=== PATIENT | female | born 1995 | race Caucasian/White ===

== ENCOUNTER 2020-11-18 13:55 | Emergency (ER) | payer OTHER, MEDICAID ==
[~2020-11-18] VITALS: Ht 157.5 cm; Wt 49.9 kg
[~2020-11-18 13:55] MED LIST: CIPROFLOXACIN500 M1 PO; DELTASONE20 MG PO; FLAGYL500 MG PO; IBUPROFEN 200200 M1 PO; IBUPROFEN 800800 M1 PO; IBUPROFEN 800800 MG PO; IRON325 PO; MACROBID 100 M100 M1 PO; NOHOMEMEDICATIONS; PRENA1 CHEW TABL1 MG; PRENATAL VITAM1 EAC5 PO; SEROQUEL 25 MG25 M1 PO; SERTRALINE HCL50 MG PO; TRAMADOL 50 MG50 MG PO; VISTARIL 25 MG25 M1 PO; ZOFRAN4 MG PO
[2020-11-18] MEDS ORDERED: METFORMIN HCL500 M3 PO (14:10)
[2020-11-18 14:56] LABS: ABSOLUTE EOSINOPHILS 0.1 thou/uL (0.0-0.7); ABSOLUTE LYMPHOCYTES 1.9 thou/uL (0.8-5.3); ABSOLUTE MONOCYTES 0.3 thou/uL (0.0-1.2); ABSOLUTE NEUTROPHILS 3.4 thou/uL (1.6-8.1); BASOPHILS 0.5 %; EOSINOPHILS 1.2 %; HEMOGLOBIN 13.8 gm/dL (12.0-15.0); LYMPHOCYTES 34.2 %; MCH 29.1 pg (26.0-34.0); MCHC 33.8 g/dL (28.0-37.0); MCV 86.2 fL (80.0-100.0); MONOCYTES 4.8 %; MPV 8.3 fl. (7.2-11.1); NUCLEATED RBCS 0 /100WBC; PLATELET COUNT* 180 thou/uL (150-400); POLYS 59.3 %; RBC 4.76 mil/uL (4.20-5.00); WBC 5.7 thou/uL (4.0-11.0)
[2020-11-18 15:08] LABS: URINE BILIRUBIN NEGATIVE (Negative); URINE BLOOD NEGATIVE (Negative); URINE CLARITY CLEAR; URINE COLOR YELLOW; URINE GLUCOSE-RANDOM NEGATIVE (Negative); URINE KETONES NEGATIVE (Negative); URINE LEUKOCYTES-REFLEX NEGATIVE (Negative); URINE NITRITE-REFLEX NEGATIVE (Negative); URINE PROTEIN NEGATIVE (Negative); URINE UROBILINOGEN 0.2 E.U./dl (0.2-1.0)
[2020-11-18 15:11] LABS: CALCIUM 8.5 mg/dL (8.5-10.1); CREATININE 0.6 mg/dL (0.6-1.3); POTASSIUM 3.6 mmol/L (3.5-5.1)
[2020-11-18 15:15] LABS: ALBUMIN 3.7 g/dL (3.4-5.0); TOTAL BILIRUBIN 0.4 mg/dL (<0.1-1.0); TOTAL PROTEIN 6.7 g/dL (6.4-8.2)
--- NOTE | 2020-11-18 15:47 | EKG ---
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
[2020-11-18] MEDS ORDERED: FLEXERIL PO (16:14)
[2020-11-18] MEDS ORDERED: IBUPROFEN 800800 M1 PO (16:14)
[2020-11-18] MEDS ORDERED: BUTALB-APAP-CA1 EACH PO (16:14)
[2020-11-18 16:31] VITALS: BP 90/50
== END 2020-11-18 16:32 | disposition home or self-care (01) ==
LOC: M.ERS 13:55
PROVIDERS: Nurse Practitioner Family
DX: S06.0X0A Concussion without loss of consciousness, initial encounter (principal); G43.909 Migraine, unspecified, not intractable, without status migrainosus; R55 Syncope and collapse; F17.210 Nicotine dependence, cigarettes, uncomplicated; Z91.010 Allergy to peanuts; Z90.710 Acquired absence of both cervix and uterus; W22.03XA Walked into furniture, initial encounter; Y93.89 Activity, other specified; Y92.59 Other trade areas as the place of occurrence of the external cause; Y99.9 Unspecified external cause status

== ENCOUNTER 2021-01-16 12:04 | Emergency (ER) | payer OTHER, MEDICAID ==
[~2021-01-16] VITALS: Ht 157.5 cm; Wt 36.3 kg
[~2021-01-16 12:04] MED LIST changes: +BUTALB-APAP-CA1 EACH PO; +FLEXERIL PO; +METFORMIN HCL500 M3 PO
[2021-01-16] MEDS ORDERED: FLEXERIL PO (12:22)
[2021-01-16] MEDS ORDERED: PEPCID40 MG PO (12:22)
[2021-01-16 12:52] LABS: ABSOLUTE EOSINOPHILS 0.1 thou/uL (0.0-0.7); ABSOLUTE LYMPHOCYTES 1.5 thou/uL (0.8-5.3); ABSOLUTE MONOCYTES 0.3 thou/uL (0.0-1.2); ABSOLUTE NEUTROPHILS 5.6 thou/uL (1.6-8.1); BASOPHILS 0.4 %; EOSINOPHILS 1.1 %; HEMATOCRIT 43.4 % (37.0-47.0); HEMOGLOBIN 15.2 gm/dL (12.0-15.0); LYMPHOCYTES 19.8 %; MCH 30.1 pg (26.0-34.0); MCHC 35.1 g/dL (28.0-37.0); MCV 85.6 fL (80.0-100.0); MONOCYTES 4.5 %; MPV 8.3 fl. (7.2-11.1); NUCLEATED RBCS 0 /100WBC; PLATELET COUNT* 188 thou/uL (150-400); POLYS 74.2 %; RBC 5.07 mil/uL (4.20-5.00); RDW-CV 14.8 % (10.5-14.5); WBC 7.5 thou/uL (4.0-11.0)
[2021-01-16 12:54] LABS: URINE BILIRUBIN NEGATIVE (Negative); URINE BLOOD NEGATIVE (Negative); URINE CLARITY CLEAR; URINE COLOR YELLOW; URINE GLUCOSE-RANDOM NEGATIVE (Negative); URINE KETONES NEGATIVE (Negative); URINE LEUKOCYTES-REFLEX NEGATIVE (Negative); URINE NITRITE-REFLEX NEGATIVE (Negative); URINE PROTEIN NEGATIVE (Negative); URINE SPECIFIC GRAVITY 1.015 (1.005-1.030); URINE UROBILINOGEN 0.2 E.U./dl (0.2-1.0)
[2021-01-16 13:00] LABS: CALCIUM 8.8 mg/dL (8.5-10.1); CREATININE 0.6 mg/dL (0.6-1.3); POTASSIUM 3.8 mmol/L (3.5-5.1)
[2021-01-16 13:04] LABS: TOTAL PROTEIN 7.6 g/dL (6.4-8.2)
[2021-01-16] MEDS ORDERED: ZOFRAN ODT4 MG DISSOLVE (14:28)
[2021-01-16 14:40] VITALS: BP 105/65
== END 2021-01-16 14:40 | disposition home or self-care (01) ==
LOC: M.ERS 12:04
PROVIDERS: Family Medicine
DX: R10.84 Generalized abdominal pain (principal); R11.2 Nausea with vomiting, unspecified; G43.909 Migraine, unspecified, not intractable, without status migrainosus; F17.210 Nicotine dependence, cigarettes, uncomplicated; Z91.010 Allergy to peanuts; Z91.018 Allergy to other foods; Z90.710 Acquired absence of both cervix and uterus

== ENCOUNTER 2021-08-22 16:22 | Emergency (ER) | payer OTHER, MEDICAID ==
[~2021-08-22] VITALS: Ht 157.5 cm; Wt 43.1 kg
[~2021-08-22 16:22] MED LIST changes: +PEPCID40 MG PO; +ZOFRAN ODT4 MG DISSOLVE
[2021-08-22 17:08] LABS: ABSOLUTE EOSINOPHILS 0.1 thou/uL (0.0-0.7); ABSOLUTE LYMPHOCYTES 1.6 thou/uL (0.8-5.3); ABSOLUTE MONOCYTES 0.3 thou/uL (0.0-1.2); ABSOLUTE NEUTROPHILS 4.5 thou/uL (1.6-8.1); BASOPHILS 0.6 %; EOSINOPHILS 0.9 %; HEMATOCRIT 42.5 % (37.0-47.0); HEMOGLOBIN 14.5 gm/dL (12.0-15.0); LYMPHOCYTES 24.5 %; MCH 29.7 pg (26.0-34.0); MCHC 34.2 g/dL (28.0-37.0); MCV 86.9 fL (80.0-100.0); MONOCYTES 4.1 %; MPV 8.3 fl. (7.2-11.1); NUCLEATED RBCS 0 /100WBC; PLATELET COUNT* 191 thou/uL (150-400); POLYS 69.9 %; RDW-CV 13.1 % (10.5-14.5); WBC 6.5 thou/uL (4.0-11.0)
[2021-08-22 17:20] LABS: CALCIUM 8.7 mg/dL (8.5-10.1); CREATININE 0.7 mg/dL (0.6-1.3)
[2021-08-22 17:25] LABS: ALBUMIN 3.8 g/dL (3.4-5.0); TOTAL BILIRUBIN 0.6 mg/dL (<0.1-1.0)
[2021-08-22 17:39] VITALS: BP 99/51
--- NOTE | 2021-08-23 11:57 | EKG ---
[place] [address] ELECTROCARDIOGRAM REPORT Name: LAZARA BENTLEY Room: [facility]#: [id number] Admission: 08/22/21 Attend Phys: Discharge: Date of : [birth year] Date of Service: 08/22/21 1634 Report #: [id number] THIS REPORT FOR: //name// [facility] ED Test Date: 2021-08-22 Test Time: 16:34:05 Pat Name: LAZARA BENTLEY Department: Room: Gender: [employer]: : 1995 Requested By: Stefano Pemberton Order Number: [id number] MD: Emmett Landis Measurements Intervals [place] Rate: 108 P: [place]: QRS: 69 QRSD: 89 T: -73 QT: 373 QTc: 500 Interpretive Statements Sinus tachycardia Diffuse nonspecific ST-T alterations Prolonged QT interval Compared to ECG 11/18/2020 14:46:57 Sinus rate has increased Prolonged QT interval now present Electronically Signed On 08-23-2021 11:56:45 CLIP BAKER by Emmett Landis [email or web address] <ELECTRONICALLY SIGNED> By: Emmett Landis MD, [facility] 08/23/21 1156 1634 1634 Emmett Landis MD, [facility] /EPI
== END 2021-08-22 17:40 | disposition home or self-care (01) ==
LOC: M.ERS 16:22
PROVIDERS: Family Medicine
DX: R07.89 Other chest pain (principal); F41.9 Anxiety disorder, unspecified; G43.909 Migraine, unspecified, not intractable, without status migrainosus; R06.02 Shortness of breath; F32.9 Major depressive disorder, single episode, unspecified; F17.210 Nicotine dependence, cigarettes, uncomplicated; Z87.42 Personal history of other diseases of the female genital tract; Z79.899 Other long term (current) drug therapy; Z91.018 Allergy to other foods; Z91.010 Allergy to peanuts